=== PATIENT | male | born 1955 | race Caucasian/White ===

== ENCOUNTER → 2020-09-29 | Outpatient (CLI) | payer MEDICARE | LOC: KOH-I 14:29 | DX: Z98.1 Arthrodesis status (principal); G54.4 Lumbosacral root disorders, not elsewhere classified | CPT/HCPCS: 72131 ==

== ENCOUNTER 2021-02-22 21:49 | Emergency (ER) | payer MEDICARE ==
[2021-02-22] MEDS ORDERED: HYDROCODON-ACE1 EAC4 PO (22:53)
== END 2021-02-23 | disposition home or self-care (01) ==
LOC: ER1 21:49
DX: S46.911A Strain of unspecified muscle, fascia and tendon at shoulder and upper arm level, right arm, initial encounter (principal); I10 Essential (primary) hypertension; Z86.73 Personal history of transient ischemic attack (TIA), and cerebral infarction without residual deficits; W18.30XA Fall on same level, unspecified, initial encounter
CPT/HCPCS: 73030; 73060; 99283

== ENCOUNTER → 2021-03-08 | Outpatient (CLI) | payer MEDICARE ==
[~2021-03-08] MED LIST: HYDROCODON-ACE1 EAC4 PO
== END ==
LOC: KOH-I 10:30
DX: M75.121 Complete rotator cuff tear or rupture of right shoulder, not specified as traumatic (principal)
CPT/HCPCS: 73221

== ENCOUNTER → 2022-02-23 | Outpatient (CLI) | payer MEDICARE ==
[~2022-02-23] MED LIST changes: +ACETAMINOPHEN500 M1 PO; +CELEBREX200 MG PO; +CHLORZOXAZONE500 MG PO; +CLARITIN10 MG PO; +FERROUS SULFAT325 M2 PO; +HYDROCHLOROTH12.5 M1 PO; +LAMICTAL25 MG PO; +LANSOPRAZOLE30 M1 PO; +LEVOTHYROXINE50 MC1 PO; +LIPITOR TAB 2020 MG PO; +LISINOPRIL10 MG PO; +LYRICA200 MG PO; +NEURONTIN300 MG PO; +NORVASC5 MG PO; +OXYCODONE HCL20 MG PO; +PROZAC 20 MG CA20 MG PO
[2022-02-23 11:31] LABS: HEMOGLOBIN 14.3 gm/dl (14.0-17.5); RED BLOOD COUNT 4.73 M/UL (4.20-5.50); WHITE BLOOD COUNT 4.7 K/UL (4.5-11.0)
[2022-02-23 11:49] LABS: BUN/CREATININE RATIO 12 (0-10)
== END ==
LOC: OPSV2 10:00 → EDSTATUS 10:00 → OPSV2 10:31
PROVIDERS: Orthopaedic Surgery
DX: Z01.818 Encounter for other preprocedural examination (principal)
CPT/HCPCS: 36415; 80048; 85025; 93005

== ENCOUNTER → 2022-02-24 | Outpatient (CLI) | payer MEDICARE, BC | LOC: KOH-I 08:38 | DX: M25.551 Pain in right hip (principal); M25.552 Pain in left hip | CPT/HCPCS: 73200; 73522 ==